=== PATIENT | male | born 1945 | race Caucasian/White ===

== ENCOUNTER 2016-08-04 21:33 | Inpatient (IN) | payer MEDICARE, OTHER ==
[~2016-08-04] VITALS: Ht 180.3 cm; Wt 100.0 kg
[~2016-08-04 21:33] MED LIST: ALLO100T30 PO; ANAS1TAB PO; ASPI-621 PO; ATOR40TA78 PO; CHOL3000 PO; FINA5TAB4 PO; MELO-190; MELO7.5T5 PO; METF10002 PO; MULT-717 PO; OMEP-110 PO; PRAS25TA PO; TADA5TAB2 PO; THYR60TA PO; VALA500T4 PO; [UNRECOGNIZED DRUG - CODE] IJ; [UNRECOGNIZED DRUG - CODE] IM; meloxicam; vitamin D PO
[2016-08-04] MEDS ORDERED: SODIUM CHLORIDE 0.9% 1,000ML IVBOLUS ONE ×2 (22:30→23:30)
[2016-08-04] MEDS ORDERED: ONDANSETRON 2MG/ML, 2ML IVPush ONE (23:00)
[2016-08-04] MEDS ORDERED: ONDANSETRON 2MG/ML, 2ML ONE (23:03)
[2016-08-04] MEDS ORDERED: MORPHINE SULFATE 4 MG/ML, 1ML ONE (23:03)
[2016-08-04] MEDS: MORPHINE SULFATE 4 MG/ML, 1ML IVPush PRN (23:07)
[2016-08-04 23:21] LABS: ASPARTATE AMINO TRANSFERASE 29 U/L (15-37); BLOOD UREA NITROGEN 20 mg/dL (7-18)
[2016-08-04 23:28] LABS: DIFF TOTAL CELLS COUNTED 100 CELL DIFF
[2016-08-04 23:30] LABS: IS PT STATUS REG ER OR PRE ER? YES
[2016-08-04] MEDS ORDERED: VANCOMYCIN PER PHARMACY MC ONE (23:30)
[2016-08-04] MEDS ORDERED: PIPERACILLIN/TAZO/PMX 3.375GM 50 ML IVPB ONE (23:30)
[2016-08-04 23:32] LABS: VERIFY COUNTS? YES
[2016-08-04 23:33] LABS: ANISOCYTOSIS 1+
[2016-08-04] MEDS ORDERED: PIPERACILLIN/TAZO/PMX 3.375GM 50 ML ONE (23:50)
[2016-08-05] MEDS ORDERED: VANCOMYCIN 2,000 MG in SODIUM CHLORIDE 0.9% 500 ML IV ONE (00:30)
[2016-08-05] MEDS ORDERED: MORPHINE SULFATE 4 MG/ML, 1ML ONE (00:34)
[2016-08-05] MEDS: MORPHINE SULFATE 4 MG/ML, 1ML IVPush PRN (00:36)
[2016-08-05] MEDS ORDERED: SODIUM CHLORIDE 0.9% 1,000 ML IV ONE (00:38)
[2016-08-05] MEDS ORDERED: MORPHINE SULFATE 4 MG/ML, 1ML IVPush PRN (01:00)
[2016-08-05] MEDS ORDERED: ONDANSETRON 2MG/ML, 2ML IVPush PRN ×2 (01:00→08:30)
[2016-08-05] MEDS ORDERED: SODIUM CHLORIDE 0.9% 1,000ML IVBOLUS ONE (01:00)
[2016-08-05 01:57] VITALS: BP 122/72
[2016-08-05 02:00] VITALS: BP 122/72
[2016-08-05] MEDS ORDERED: BUPIVACAINE/PF-EPI 0.25% 1:200K ONE (06:22)
[2016-08-05] MEDS ORDERED: MIDAZOLAM 1 MG/ML, 2ML ONE (06:56)
[2016-08-05] MEDS ORDERED: FENTANYL PF 250 MCG/5ML ONE (06:56)
[2016-08-05] MEDS ORDERED: SUCCINYLCHOLINE 20 MG/ML, 10ML ONE (07:16)
[2016-08-05] MEDS ORDERED: PROPOFOL 10 MG/ML, 20ML ONE (07:16)
[2016-08-05] MEDS ORDERED: DEXAMETHASONE 4 MG/ML, 1ML ONE (07:16)
[2016-08-05] MEDS ORDERED: ONDANSETRON 2MG/ML, 2ML ONE (07:16)
[2016-08-05] MEDS ORDERED: PIPERACILLIN/TAZO/PMX 3.375GM 50 ML IV ONE (07:30)
[2016-08-05] MEDS ORDERED: EPHEDRINE 50 MG/ML, 1ML IVPush PRN (08:30)
[2016-08-05] MEDS ORDERED: FENTANYL PF 100 MCG/2ML IV PRN (08:30)
[2016-08-05] MEDS ORDERED: HYDROmorphone 1 MG/ML, 1ML IV PRN (08:30)
[2016-08-05] MEDS ORDERED: OXYcodone 5 MG/5 ML ORAL.SOL UDC PO PRN (08:30)
[2016-08-05] MEDS ORDERED: MIDAZOLAM 1 MG/ML, 2ML IV PRN (08:30)
[2016-08-05 10:30] VITALS: BP 95/63
[2016-08-05] MEDS: INSULIN REGULAR, HUMAN 100 UNIT/ML 3ML VIAL LOW DOSE SS SQ-INSULIN SCH ×2 (12:30→17:14)
[2016-08-05] MEDS ORDERED: DIPHENHYDRAMINE 50 MG/ML, 1ML IV PRN (12:30)
[2016-08-05] MEDS ORDERED: ONDANSETRON 2MG/ML, 2ML IV PRN (12:30)
[2016-08-05] MEDS ORDERED: morphine SULFATE 10 MG/ML, 1ML IV PRN (12:30)
[2016-08-05] MEDS ORDERED: ACETAMINOPHEN 325 MG TABLET PO PRN (12:30)
[2016-08-05] MEDS ORDERED: HYDROmorphone 2MG TABLET PO PRN (12:30)
[2016-08-05] MEDS ORDERED: ACETAMINOPHEN 650 MG SUPP PR PRN (12:30)
[2016-08-05] MEDS ORDERED: DIPHENHYDRAMINE 25 MG CAPSULE PO PRN (12:30)
[2016-08-05 13:09] VITALS: BP 116/47
[2016-08-05] MEDS ORDERED: ALBUTEROL SULFATE 2.5 MG/3 ML ONE (13:16)
[2016-08-05] MEDS: PIPERACILLIN-TAZO-DEXTROSE,ISO 100 ML IV SCH (15:34)
[2016-08-05] MEDS: SODIUM CHLORIDE 0.9% 1,000 ML IV SCH ×2 (15:34→21:44)
[2016-08-05] MEDS: metFORMIN 500 MG TABLET PO SCH (17:14)
[2016-08-05 20:00] VITALS: BP 105/70
[2016-08-05] MEDS ORDERED: ATORVASTATIN 40 MG TABLET PO SCH (21:00)
[2016-08-05] MEDS: SODIUM CHLORIDE FLUSH 10ML SYR IVF SCH (21:43)
[2016-08-05] MEDS ORDERED: VANCOMYCIN PMX 1GM/200ML 200 ML IVPB ONE (22:00)
[2016-08-05 23:46] VITALS: BP 99/65
[2016-08-06] MEDS: PIPERACILLIN-TAZO-DEXTROSE,ISO 100 ML IV SCH ×2 (00:27→08:16)
[2016-08-06] MEDS: INSULIN REGULAR, HUMAN 100 UNIT/ML 3ML VIAL LOW DOSE SS SQ-INSULIN SCH ×2 (00:33→06:30)
[2016-08-06 01:58] VITALS: BP 108/67
[2016-08-06] MEDS ORDERED: THYROID 30 MG TABLET PO SCH (06:00)
[2016-08-06 06:08] LABS: ASPARTATE AMINO TRANSFERASE 113 U/L (15-37); BLOOD UREA NITROGEN 44 mg/dL (7-18)
[2016-08-06] MEDS ORDERED: OMEPRAZOLE 20 MG CAPSULE.DR PO SCH (07:30)
[2016-08-06 07:54] VITALS: BP 134/81
[2016-08-06] MEDS: SODIUM CHLORIDE FLUSH 10ML SYR IVF SCH (08:16)
[2016-08-06] MEDS: metFORMIN 500 MG TABLET PO SCH (08:16)
[2016-08-06] MEDS ORDERED: FINASTERIDE 5 MG TABLET PO SCH (09:00)
[2016-08-06] MEDS ORDERED: ANASTROZOLE 1 MG TABLET PO SCH (09:00)
[2016-08-06] MEDS ORDERED: MELOXICAM 15 MG TABLET PO SCH (09:00)
[2016-08-06] MEDS ORDERED: MULTIVITAMIN 1 TABLET PO SCH (09:00)
[2016-08-06] MEDS ORDERED: CHOLECALCIFEROL 1,000 UNIT TABLET PO SCH (09:00)
[2016-08-06] MEDS ORDERED: ALLOPURINOL 100 MG TABLET PO SCH (09:00)
[2016-08-06] MEDS ORDERED: PRASTERONE 25 MG PO SCH (09:00)
[2016-08-06] MEDS ORDERED: SODIUM CHLORIDE 0.9% 1,000 ML IV SCH (12:30)
[2016-08-06] MEDS ORDERED: ACET-1757 PO (12:42)
== END 2016-08-06 13:00 | disposition home or self-care (01) | DRG 853 ==
LOC: ED 23:44 → EDIP 08-05 00:38 → 4NOR 08-05 01:30 → DCLOUNGE 08-06 12:28
PROVIDERS: ADMIT Surgery; ATTEND Surgery
PROC: 0FT44ZZ Resection of Gallbladder, Percutaneous Endoscopic Approach (ICD-10-PCS; principal; 2016-08-05 07:00)
DX: A41.9 Sepsis, unspecified organism (principal); N17.0 Acute kidney failure with tubular necrosis; E11.52 Type 2 diabetes mellitus with diabetic peripheral angiopathy with gangrene; J98.11 Atelectasis; K80.00 Calculus of gallbladder with acute cholecystitis without obstruction; F43.10 Post-traumatic stress disorder, unspecified; G47.30 Sleep apnea, unspecified; I10 Essential (primary) hypertension; I48.0 Paroxysmal atrial fibrillation; K21.9 Gastro-esophageal reflux disease without esophagitis; K59.00 Constipation, unspecified; K66.8 Other specified disorders of peritoneum; K76.0 Fatty (change of) liver, not elsewhere classified; K76.89 Other specified diseases of liver; N40.0 Benign prostatic hyperplasia without lower urinary tract symptoms; Z86.14 Personal history of Methicillin resistant Staphylococcus aureus infection
CPT/HCPCS: 36415; 71010; 71020; 74177; 76700; 80053; 81001; 82962; 83605; 83690; 83880; 84145; 84484; 85025; 85610; 87040; 88304; 93005; 96361; 96365; 96366; 96368; 96375; J1100; J1815; J2250; J2405; J2543; J2704; J3010; J3370; J0330; J2270; J7030; J7040

== ENCOUNTER → 2017-11-08 | Outpatient (CLI) | payer MEDICARE, OTHER ==
[~2017-11-08] MED LIST changes: +ACET-1757 PO; -MELO-190; +MELO7.5T31; +OMNIPAQUE 350 MG/ML, 100ML BOTTLE ONE
== END | disposition home or self-care (01) ==
LOC: CFH 11:08
PROVIDERS: ATTEND Internal Medicine
DX: K57.90 Diverticulosis of intestine, part unspecified, without perforation or abscess without bleeding (principal); K76.0 Fatty (change of) liver, not elsewhere classified; K76.89 Other specified diseases of liver; J98.11 Atelectasis; D73.4 Cyst of spleen; J84.10 Pulmonary fibrosis, unspecified; K44.9 Diaphragmatic hernia without obstruction or gangrene; K90.89 Other intestinal malabsorption
CPT/HCPCS: 74177; Q9967